=== PATIENT | male | born 1995 | race Caucasian/White ===

== ENCOUNTER 2023-03-10 05:57 | Day surgery (SDC) | payer BC ==
[2023-03-09 14:26] VITALS: BMI 29.4
[2023-03-10] MEDS ORDERED: Indocyanine Green 25 MG/10 ML VIAL ONE (06:17)
[2023-03-10] MEDS ORDERED: EPINEPHrine 1 MG/ML VIAL ONE (06:39)
[2023-03-10] MEDS ORDERED: Bupivacaine PF 0.5% 30 ML VIAL ONE (06:39)
[2023-03-10] MEDS ORDERED: Fentanyl 250 MCG/5 ML VIAL ONE (07:02)
[2023-03-10] MEDS ORDERED: Rocuronium Bromide 10 MG/ML (10ML VIAL) ONE (07:02)
[2023-03-10] MEDS ORDERED: Lidocaine 2% PF 5 ML VIAL ONE (07:02)
[2023-03-10] MEDS ORDERED: Ondansetron PF 4 MG/2 ML Vial ONE (07:02)
[2023-03-10] MEDS ORDERED: Dexamethasone 4 mg/ml Vial ONE (07:02)
[2023-03-10] MEDS ORDERED: PROPOFOL 20 ML ONE ×4 (07:02→08:29)
[2023-03-10] MEDS ORDERED: Midazolam HCl 2 mg/2 ml Vial ONE (07:03)
[2023-03-10] MEDS ORDERED: SUGAMMADEX SODIUM 200 MG/2 ML VIAL ONE (07:13)
[2023-03-10] MEDS ORDERED: CEFAZOLIN 2 GM VIAL ONE (07:20)
[2023-03-10] MEDS ORDERED: hydrALAZINE 20 MG/ML VIAL ONE (07:52)
[2023-03-10] MEDS ORDERED: Meperidine HCl/PF 25 MG (1 mL) VIAL ONE (08:08)
[2023-03-10] MEDS ORDERED: HYDROcodone/Acetaminophen 5/325 mg Tablet PO PRN (08:55)
[2023-03-10] MEDS ORDERED: Acetaminophen 325 MG TAB PO PRN (08:55)
[2023-03-10] MEDS ORDERED: fentaNYL 50 mcg/mL 1 mL Vial ONE (09:12)
[2023-03-10] MEDS ORDERED: HYDROcodone/Acetaminophen 5/325 mg Tablet ONE (09:50)
== END 2023-03-10 10:45 | disposition home or self-care (01) ==
LOC: CSHSDC 05:57
PROVIDERS: ATTEND Surgery
PROC: 0FT44ZZ Resection of Gallbladder, Percutaneous Endoscopic Approach (ICD-10-PCS; principal; 2023-03-10)
DX: K80.10 Calculus of gallbladder with chronic cholecystitis without obstruction (principal); I10 Essential (primary) hypertension; Z79.899 Other long term (current) drug therapy
CPT/HCPCS: 88304; C1776; J0171; J0360; J1100; J2001; J2175; J2250; J2405; J2704; J3010; S0020